=== PATIENT | female | born 1980 | race Caucasian/White ===

== ENCOUNTER 2020-09-16 14:59 | Day surgery (SDC) | payer OTHER ==
[~2020-09-16] VITALS: Ht 162.6 cm; Wt 53.2 kg
[~2020-09-16 14:59] MED LIST: MOTRIN 600600 MG/TAB PO; PERCOCET 325 MG1 TA2 PO
[2020-09-16] MEDS ORDERED: SYNTHROID0.112 MG/T PO (15:38)
[2020-09-16] MEDS ORDERED: ZYRTEC ALLERGY10 MG PO (15:39)
[2020-09-16] MEDS ORDERED: CLARISPRAY9.9 ML NS (15:39)
[2020-09-16 15:40] VITALS: BP 118/82; PULSE 87; TEMP 99.3
[2020-09-16] MEDS ORDERED: PYRIDIUM 100MG100 MG PO (18:20)
[2020-09-16] MEDS ORDERED: ULTRAM 50MG TAB50 MG PO (18:21)
[2020-09-16 19:04] VITALS: BP 106/72; PULSE 98
--- NOTE | 2020-09-16 19:30 | NUR ---
Pt. sitting up in bed at this time. Pt. is A&OX3, assessment complete. INT to rt. wrist patent. Pt. reports pain at a 4 on pain scale. Will give pain meds per orders. Pt. denies further needs, call light within reach.
[2020-09-16 19:34] VITALS: BP 108/62; PULSE 63; TEMP 98.2
[2020-09-16 20:04] VITALS: BP 105/60; PULSE 65
--- NOTE | 2020-09-16 20:30 | NUR ---
Pt. has met criteria for discharge. Pt. tolerating PO, abulating independently and has urinated. Pt. given dicharge packet including scripts, education, pt. health summary, and discharge instructions. INT discontinued from rt. wrist. Pt. dressed and escorted out by wheelchair.
== END 2020-09-16 20:30 | disposition home or self-care (01) ==
LOC: SDCO 14:59 → SURG 19:00 → SDCO 20:30
DX: N20.0 Calculus of kidney (principal); F41.9 Anxiety disorder, unspecified; J45.909 Unspecified asthma, uncomplicated; E03.9 Hypothyroidism, unspecified; Z88.1 Allergy status to other antibiotic agents; F17.290 Nicotine dependence, other tobacco product, uncomplicated
CPT/HCPCS: OP; C1769; C2617; J0690; J2250; J2704; J7120